=== PATIENT | male | born 1990 | race Caucasian/White ===

== ENCOUNTER 2019-11-27 07:46 | Emergency (ER) | payer OTHER ==
[~2019-11-27] VITALS: Ht 177.8 cm; Wt 86.2 kg
--- NOTE | 2019-11-27 08:00 | NUR ---
BIB SELF C/O CHEST PAIN X 1WEEK MIDSTERNAL DULL NON RADIATING. PATIENT A/OX4, BREATHING EVEN AND UNLABORED, C/O MILD DISCOMFORT. CHANGED INTO A GOWN, ATTACHED TO THE DIESEL TECHNICIAN.
--- NOTE | 2019-11-27 09:07 | NUR ---
Patient a/ox4, per patient chest pain subsided, no sob noted, no other complaints. Patient discharged to home in stable condition. Written and verbal after care instructions given. Patient verbalizes understanding of instruction. Copies of ekg and chest xray provided to patient as requested. Instructed to follow up with primary care physician.
[2019-11-27 09:08] VITALS: BP 114/64
== END 2019-11-27 09:09 | disposition home or self-care (01) ==
LOC: ER 07:46
DX: R07.89 Other chest pain (principal); Z60.2 Problems related to living alone
CPT/HCPCS: 71045-TC